=== PATIENT | female | born 1985 | race Two or more races ===

== ENCOUNTER → 2024-11-04 | Outpatient (CLI) | payer OTHER, SELFPAY ==
--- NOTE | 2024-11-04 08:15 | XR_ITS ---
Examination: Screening digital mammography, bilateral Computer aided detection 3-D breast Tomosynthesis, bilateral Date and time of exam: 11/04/2024, 8:14 AM Comparisons: 08/14/2023 Indications: Screening Technique: Nonmagnified MLO, CC views of the breasts to been obtained, reconstructed from 3-D Tomosynthesis images. R2 computer aided detection program utilized for evaluation of suspicious masses and/or abnormal calcifications. 3-D Tomosynthesis images obtained. Technologist: Findings: The breasts are heterogeneously dense, which may obscure small masses. No evidence of abnormal masses or suspicious calcifications. Impression: BI-RADS category 1: Negative findings (within normal) Recommend 1 year follow-up mammogram
== END | disposition home or self-care (01) ==
LOC: CDIM 08:03
PROVIDERS: Referring Provider Nurse Practitioner Family; Visit Provider Nurse Practitioner Family
DX: Z12.31 Encounter for screening mammogram for malignant neoplasm of breast (principal); R92.313 Mammographic fatty tissue density, bilateral breasts
CPT/HCPCS: 77063; 77067

== ENCOUNTER 2025-07-02 23:15 | Emergency (ER) | payer OTHER, SELFPAY ==
[2025-07-02 23:16] VITALS: BMI 32.1
[2025-07-02 23:59] VITALS: BP 127/87; PULSE 81; RESP 18; TEMP 36.7; O2SAT 98
--- NOTE | 2025-07-03 00:10 | XR_ITS ---
Examination: CT abdomen and pelvis without contrast. Coronal 3-D reconstructions. Sagittal 2-D reconstructions. Date and time of exam: July 03, 2025, 0148 hours INDICATIONS: Upper abdominal pain beginning 3 days ago COMPARISON: November 02, 2023 CTDI: vol (mGy): 9.61 DLP: (mGycm): 570 Technique: Axial images of the abdomen have been obtained, 3 mm slice thickness Intravenous contrast material has not been administered. Low dose protocols were performed. One or more of the following dose reduction techniques were used; automated exposure control, adjustment of the mA and/or KV according to patient size, use of iterative reconstruction technique. Findings: No focal liver or splenic lesions No gallstones No pancreatic or adrenal mass Mild renal scar formation No renal or ureteral calculi, no hydronephrosis Aorta normal size Normal appendix No bowel obstruction Atrophic uterus Urinary bladder wall thickening Grade 1 spondylolisthesis L5 on S1 with advanced degenerative disc disease L5-S1 IMPRESSION: Urinary bladder wall thickening, consider cystitis
[2025-07-03 00:35] LABS: Collection Type, Urine Clean Catch
[2025-07-03 00:36] LABS: Basophils # (Auto) 0.0 Thou/mm3 (0.0-0.2); Basophils % (Auto) 1 % (0-2.5); Eosinophils # (Auto) 0.2 Thou/mm3 (0.0-0.5); Eosinophils % (Auto) 4 % (0-10); Hematocrit 39.8 % (36.0-46.0); Hemoglobin 14.1 g/dL (12.0-16.0); Immature Granulocytes Auto 0.02 Thou/mm3 (0.00-0.00); Lymphocytes # (Auto) 2.1 Thou/mm3 (1.0-4.8); Lymphocytes % (Auto) 36 % (10-50); Mean Corpuscular HGB Conc 35.4 g/dl (31.0-37.0); Mean Corpuscular Hemoglobin 31.8 pg (25.0-35.0); Mean Corpuscular Volume 90 fL (80-100); Monocytes # (Auto) 0.4 Thou/mm3 (0.0-0.8); Monocytes % (Auto) 7 % (0-12); Neutrophils # (Auto) 3.1 Thou/mm3 (1.8-7.7); Neutrophils % (Auto) 53 % (37-80); Nucleated Red Blood Cell # 0.00 Thou/mm3 (0.00-0.00); Nucleated Red Blood Cell % 0 /100 WBC (0); Platelet Count 255 Thou/mm3 (140-440); RDW Standard Deviation 39.8 fL (36.4-46.3); Red Blood Count 4.43 Miln/mm3 (4.00-5.20); White Blood Count 5.8 Thou/mm3 (3.6-11.0)
[2025-07-03 00:44] LABS: Bilirubin,Urine Negative (Negative); Blood,Urine Negative (Negative); Clarity,Urine Clear (Clear/Hazy); Color,Urine Lt-Yellow (Lt Yel-Yel); Glucose, Urine 4+ (Negative); Ketones,Urine 3+ (Negative); Leukocyte Esterase,Urine Negative (Negative); Nitrite,Urine Negative (Negative); PH,Urine 6.5 (5.0-7.0); Protein,Urine Negative (Neg - Trace); RBC,Urine 2 /hpf (0-3); Specific Gravity,Urine 1.040 (1.001-1.035); Squamous Epithelial Cell,Urine 1 /hpf (0-5); Urobilinogen,Urine Negative mg/dL (0.0-1.0); WBC,Urine < 1 /hpf (0-5)
[2025-07-03 00:45] LABS: HCG Qualitative,Urine Negative
[2025-07-03 01:09] LABS: Alanine Aminotransferase 8 U/L (10-49); Albumin, Serum 4.6 gm/dL (3.5-5.0); Albumin/Globulin Ratio 2.2 (1.2-2.2); Alkaline Phosphatase 131 U/L (46-116); Anion Gap 12 (7-16); Aspartate Amino Transferase 11 U/L (0-34); BUN/Creatinine Ratio 8 Ratio (12-20); Bilirubin,Total 0.2 mg/dL (0.3-1.2); Blood Urea Nitrogen < 5 mg/dL (9-23); Calcium 10.2 mg/dL (8.3-10.6); Calcium (Corrected) 10.2 mg/dL (8.5-10.1); Carbon Dioxide 26.4 mMol/L (20.0-31.0); Chloride 96 mMol/L (98-107); Creatinine (Component) 0.6 mg/dL (0.6-1.3); Estimated Creatinine Clearance 114.8 mL/min (>60); Globulin 2.1 gm/dL (2.3-3.5); Glucose 340 mg/dL (74-106); Lipase 34 U/L (12-53); Osmolality,Calculated 278 (275-295); Potassium 3.6 mMol/L (3.4-5.1); Sodium 134 mMol/L (136-145); Total Protein 6.7 gm/dL (5.7-8.2); eGFR > 60 See Note
--- NOTE | 2025-07-03 02:14 | PD.EDRME ---
Rapid Medical Screening Exam RME Arrival date/time: 07/02/25 23:15 This is a case of 41-year-old female with history of hyperlipidemia and diabetes came into the emergency room due to generalized abdominal pain for 2 days associated with nausea vomiting diarrhea worsening of the symptoms this patient decided to start consulted in the emergency room Chief Complaint: Abdominal Pain Time Seen by Provider: 07/03/25 00:10 Vital signs: Vital Signs Temperature 98.1 F 07/02/25 23:59 Pulse Rate 81 07/02/25 23:59 Respiratory Rate 18 07/02/25 23:59 Blood Pressure 127/87 H 07/02/25 23:59 Pulse Oximetry (%) 98 07/02/25 23:59 Oxygen Delivery Method Room Air 07/02/25 23:59 Exam: Abdominal exam mild tenderness on the both upper abdomen no guarding no rebound no rigidity Clinical Impression: Abdominal pain
--- NOTE | 2025-07-03 02:36 | PD.EDABDPN ---
ED Abdominal Pain RME/HPI General Chief Complaint: Abdominal Pain Stated complaint: UPPER ABD PAIN Time seen by provider: 07/03/25 00:10 Arrival date/time: 07/02/25 23:15 RME / HPI RME / HPI narrative: 07/02/25 23:15 This is a case of 41-year-old female with history of hyperlipidemia and diabetes came into the emergency room due to generalized abdominal pain for 2 days associated with nausea vomiting diarrhea worsening of the symptoms this patient decided to start consulted in the emergency room DR. GOLDBERG MAIN ED EVALUATION: Patient with known DM presenting with burning sensation to the LUQ x approximately 4 days duration increasing with PO. No nausea, vomiting, or diarrhea. Denies fever and chills. Although baseline urinary frequency, denies dysuria. PMH: Hypercholesterolemia, Asthma, Obesity, Diabetes Mellitus Type 2, Anemia PSH: , Hysterectomy, Tubal Ligation Allergies: NKDA Social: Non-smoker, Non-drinker Exam: Abdominal exam mild tenderness on the both upper abdomen no guarding no rebound no rigidity Impression: Abdominal pain Related Data Home Medications ?Medication ?Instructions ?Recorded ?Confirmed metformin 1,000 mg tablet 1,000 mg PO BID 05/03/19 01/25/22 atorvastatin 20 mg tablet 20 mg PO QDAY 01/25/22 01/25/22 cholecalciferol (vitamin D3) 125 5,000 unit PO QDAY 01/25/22 01/25/22 mcg (5,000 unit) tablet (Vitamin D3) glipizide 5 mg tablet 5 mg PO QDAY 01/25/22 01/25/22 insulin glargine 100 unit/mL (3 50 unit subcut HS 01/25/22 01/25/22 mL) subcutaneous pen (Basaglar KwikPen U-100 Insulin) Previous Rx's ?Medication ?Instructions ?Recorded tramadol 50 mg tablet 50 mg PO Q4H PRN pain #14 tabs 01/25/22 hydrocodone 5 mg-acetaminophen 325 1 tab PO TID PRN pain #10 tabs 07/20/22 mg tablet hydrocodone 5 mg-acetaminophen 325 1 tab PO TID PRN pain #10 tabs 07/21/22 mg tablet omeprazole magnesium 10 mg oral 10 mg PO BID #30 ea 07/03/25 suspension,delayed release (Prilosec) Allergies Allergy/AdvReac Type Severity Reaction Status Date / Time No Known Allergies Allergy Verified 07/02/25 23:21 Review of Systems Review of Systems Systems Reviewed: All systems reviewed, normal except as documented Past Medical History Past Medical History CARDIAC: Positive Hypercholesterolemia RESPIRATORY: Positive Asthma GASTROINTESTINAL: Positive Obesity REPRODUCTIVE: Positive Previous Pregnancies ENDOCRINE: Positive Diabetes Mellitus Type 2 HEMATOLOGIC: Positive Anemia OTHER HISTORY: Positive Blood Transfusions Family History FAMILY HISTORY: Positive Family Cardiac Disorders (father(htn)) and Family Surgery Surgical History SURGICAL: Positive Hysterectomy, Tubal Ligation (2018) and Section (x3) ED Exam Narrative Physical exam: GEN. APPEARANCE: The patient is alert awake oriented X-3 under no distress, lying down comfortably, does not look ill/toxic. Patient has good eye contact. Patient is cooperative. VITALS: All vitals were reviewed and the pulse ox is 98%, which is normal according to my interpretation HEENT: Normocephalic, atraumatic and nontender. Pupils are equal and reactive. Oral mucosa is moist. NECK: Supple, nontender, no meningismus, no JVD. There is no thyromegaly and no lymphadenopathy. CHEST: Nontender on palpation no deformity and no crepitus. CARDIOVASCULAR: Heart regular rhythm, no murmur or gallop rub or extra beats. LUNGS: Clear to auscultation bilaterally with symmetrical chest rise. No laboring tachypnea or wheezing. No intercostal subcostal retraction. No rales and no rhonchi. ABDOMEN: Soft, flat, LUQ/epigastric region mildly tender, no peritoneal findings, no guarding or rebound tenderness. There are no abnormal masses palpated. No pulsatile masses or bruits. Active and normal bowel sounds. EXTREMITIES: Normal inspection and palpation. No edema. No cyanosis. Patient is able to move all 4 extremities well SKIN: Warm and dry, no rashes noted. MUSCULOSKELETAL: No lumbar or midline bony tenderness. There is no CVA tenderness. No paraspinal muscle spasm or tenderness. NEURO: Cranial nerves II through XII grossly intact. There are no focal neurologic deficits noted. GCS is 15 PSYCHIATRIC: Patient is in normal mood and affect, cooperative. LYMPHATICS: No major lymphadenopathy noted. Course Quality Measures none Orders Category Date Time Status CT abdomen pelvis wo con Stat Exams 07/03/25 00:10 Completed Beta Hydroxybutyrate Stat Lab 07/03/25 03:04 Completed CBC Stat Lab 07/03/25 00:26 Completed Comprehensive Metabolic Panel Stat Lab 07/03/25 00:26 Completed HCG Qualitative,Urine Stat Lab 07/03/25 00:19 Completed Lipase Stat Lab 07/03/25 00:26 Completed Urinalysis Stat Lab 07/03/25 00:19 Completed Venous Blood Gas Stat Lab 07/03/25 02:13 Completed Insulin Regular Med 07/03/25 02:45 Discontinued 5 unit SC X1 ONE Insulin Regular Med 07/03/25 02:13 Discontinued 6 unit IV X1 ONE Lidocaine 2% Viscous [Xylocaine 2% Viscous] Med 07/03/25 02:42 Discontinued 15 ml PO X1 ONE Sodium Chloride 0.9% 1000 ml [Ns] 1,000 ml Med 07/03/25 02:13 Discontinued IV 999 mls/hr Sodium Chloride 0.9% 1000 ml [Ns] 1,000 ml Med 07/03/25 02:42 Discontinued IV 999 mls/hr mg Hyd/Al Hyd/Tiffani Susp [Maalox Susp] Med 07/03/25 02:42 Discontinued 30 ml PO X1 ONE Vital Signs Vital signs: Vital Signs Temperature 98.1 F 07/02/25 23:59 Pulse Rate 81 07/02/25 23:59 Respiratory Rate 18 07/02/25 23:59 Blood Pressure 127/87 H 07/02/25 23:59 Pulse Oximetry (%) 98 07/02/25 23:59 Oxygen Delivery Method Room Air 07/02/25 23:59 Abdominal Pain MDM MDM Narrative MDM Narrative:: Scribe Attestation: Amber Rebollar am scribing for and in the presence of Dr. Santoyo. Provider Notation: Although this document has been carefully reviewed, there may still be some phonetic and other typographical errors. These errors are purely grammatical due to imperfections in the software program and should not be construed in any way to compromise the substance of the patient's medical care during this visit. Patient with known DM presenting with burning sensation to the LUQ x approximately 4 days duration increasing with PO. No nausea, vomiting, or diarrhea. Denies fever and chills. Although baseline urinary frequency, denies dysuria. Please see PE findings. Laboratory markers including CBC and serum chemistries demonstrate norm wbc no anemia or thrombocytopenia. No left shift or bandemia. Serum chemistries were essentially unremarkable. Glucose elevated to 340 without signs of ketosis. Marginal elevation in LFT's. Patient treated with GI cocktail and regular insulin, patient observed for several hours and remained otherwise stable, non-toxic in appearance and although US suggestive of cystitis, UA completely unremarkable for signs of infection. Patient notably dehydrated, will encourage force fluid hydration, placed on PPI, and instructed to F/U with PMD for consideration for referral to GI specialist. Final diagnoses include gastritis and hyperglycemia without ketosis. Patient data External records reviewed:: [facility] previous records (Reviewed prior ED records from 07/31/22. Patient was seen for Pain, dental.) Clinical information provided by:: patient Social determinants that could affect healthcare access:: none Patient has the following chronic illnesses:: Hypercholesterolemia, Asthma, Obesity, Diabetes Mellitus Type 2, Anemia How is presenting disease/condition affected by chronic disease/condition?: exacerbated by Evaluation data The following diagnostics were reviewed and interpreted by me:: lab results and radiology exam(s) Lab and/or radiology exams considered but not ordered:: None Interpretation Summary: RADIOLOGY Abdomen/Pelvis CT: Findings: There is a 3mm calcified granuloma at the right lung base. There is bibasilar subsegmental atelectasis. The liver, gallbladder, pancreas, spleen, kidneys and adrenals are unremarkable on this noncontrast study. No obstructing ureteric calculus or hydronephrosis. No evidence of bowel obstruction. The appendix is within normal limits. There is no adenopathy. The urinary bladder is incompletely distended at the time of the examination and appears moderately thick walled. The uterus is small.There is no free fluid or free air. There is umbilical thickening. There is L5 bilateral spondylolysis with mild grade 1 anterolisthesis of the L5 on S1. There is advanced degenerative disc disease at L5-S1. Impression: No evidence of bowel obstruction, free air or fluid collection. Findings suspicious forcystitis. Recommendurinalysis correlation. Medications / Prescriptions Medications or Prescriptions considered but not ordered:: None Medication administrations:: Medication Administration History Discontinued Medications Al Hydrox/Mg Hydrox/Simethicone (Mg Hyd/Al Hyd/Tiffani (Maalox Reg) Susp 30 Ml Udc) 30 ml PO X1 ONE Stop: 07/03/25 02:43 Last Admin: 07/03/25 03:56 Dose: 30 ml Documented By: KURT Sodium Chloride (Ns) 1,000 mls @ 999 mls/hr IV .Q1H1M ONE Stop: 07/03/25 03:13 Last Admin: 07/03/25 04:20 Dose: Not Given Documented By: HILDA Non-Admin Reason: Discontinued Sodium Chloride (Ns) 1,000 mls @ 999 mls/hr IV .Q1H1M ONE Stop: 07/03/25 03:42 Last Admin: 07/03/25 04:20 Dose: Not Given Documented By: HILDA Non-Admin Reason: Discontinued Insulin Human Regular (Insulin Hum Regular 1 Unit/0.01 Ml (Per Unit)) 6 unit IV X1 ONE Stop: 07/03/25 02:14 Last Admin: 07/03/25 04:20 Dose: Not Given Documented By: HILDA Non-Admin Reason: Discontinued Insulin Human Regular (Insulin Hum Regular 1 Unit/0.01 Ml (Per Unit)) 5 unit SC X1 ONE Stop: 07/03/25 02:46 Last Admin: 07/03/25 04:00 Dose: 5 unit Documented By: KURT Co-signed By: HILDA Lidocaine HCl (Lidocaine Viscous 2% 15 Ml Udc) 15 ml PO X1 ONE Stop: 07/03/25 02:43 Last Admin: 07/03/25 03:59 Dose: 15 ml Documented By: KURT See above if any Consultations Consultation(s) initiated? (list below): No Diagnosis Differential diagnosis abdominal pain: abdominal pain, calculus of kidney, pancreatitis and other (GERD) Most likely diagnosis given after review of the tests above:: gastritis and hyperglycemia without ketosis Admission Indicated Admission indicated?: not indicated Explain why admission is indicated or not indicated:: Patient does not meet admission criteria Admission Request Was there a request for admission?: No Disposition Plan Disposition Plan: Discharge Discharge Attestation Discharge Attestation: The patient and all family members were given an opportunity to ask questions and understood the discharge instructions. Discharge instructions specifically effects, indications for sooner follow up or return to the emergency department, and the expected course of current diagnosis. Patient condition: Stable Discharge Plan Plan Patient Disposition: HOME (Self Care) Discharge Disposition comment: Stable Prescriptions/Referrals Prescriptions/Med Rec: New Prilosec 10 mg susp,delayed release for recon 10 mg PO BID Qty: 30 1RF No Action metformin 1,000 mg Tablet 1,000 mg PO BID atorvastatin 20 mg Tablet 20 mg PO QDAY glipizide 5 mg Tablet 5 mg PO QDAY Basaglar KwikPen U-100 Insulin 100 unit/mL (3 mL) Insulin Pen 50 unit SUBCUT HS cholecalciferol (vitamin D3) [Vitamin D3] 125 mcg (5,000 unit) Tablet 5,000 unit PO QDAY tramadol 50 mg tablet 50 mg PO Q4H PRN (Reason: pain) Qty: 14 0RF hydrocodone-acetaminophen 5-325 mg tablet 1 tab PO TID MDD 3 PRN (Reason: pain) Qty: 10 0RF hydrocodone-acetaminophen 5-325 mg tablet 1 tab PO TID MDD 3 PRN (Reason: pain) Qty: 10 0RF Referrals: Krystyna Cantor CNM [Primary Care Provider] - In 1 week Problem List Clinical Impression: Gastritis, Hyperglycemia without ketosis Impression comment: Gastritis/hyperglycemia without ketosis Patient/Caregiver Discharge Instructions Discharge Activity: activity as tolerated Diet Instructions: Avoid hot spicy foods, caffeinated beverages, Education Materials: ED Diabetes with High Blood Sugar, ED PEPTIC ULCER vs GASTRITIS Additional Instructions: Medication as directed. Avoid caffeinated beverages and hot and spicy foods. Follow-up with primary care doctor for consideration of referral to GI specialist for upper endoscopy. Print Language: Barbadian Stand Alone Forms: Marie Award Info., Patient Portal Info Letter
--- NOTE | 2025-07-03 02:39 | PRELIM_ITS ---
CT scan of the abdomen and pelvis without intravenous contrast (axial sections with sagittal and coronal reformats) July 03, 2025 0148 hours Clinical History: abd pain Findings: There is a 3mm calcified granuloma at the right lung base. There is bibasilar subsegmental atelectasis. The liver, gallbladder, pancreas, spleen, kidneys and adrenals are unremarkable on this noncontrast study. No obstructing ureteric calculus or hydronephrosis. No evidence of bowel obstruction. The appendix is within normal limits. There is no adenopathy. The urinary bladder is incompletely distended at the time of the examination and appears moderately thick walled. The uterus is small.There is no free fluid or free air. There is umbilical thickening. There is L5 bilateral spondylolysis with mild grade 1 anterolisthesis of the L5 on S1. There is advanced degenerative disc disease at L5-S1. Impression: No evidence of bowel obstruction, free air or fluid collection. Findings suspicious forcystitis. Recommendurinalysis correlation. Report Electronically Signed By: Sarwat Oseguera 07/03/2025 2:39:26 AM [EST]
[2025-07-03 03:41] LABS: Base Excess, Venous 1 (-3-3); O2 Saturation, Venous 78 % (96-97); PCO2, Venous 42 mmHg (36-56); PO2, Venous 42 mmHg (15-58); pH, Venous 7.40 (7.33-7.66)
[2025-07-03 03:53] LABS: Beta Hydroxybutyrate 3.0 mmol/L (<0.6)
[2025-07-03] MEDS: MG HYD/AL HYD/SIME (Maalox Reg) SUSP 30 ML UDC PO (03:56)
[2025-07-03] MEDS: LIDOCAINE VISCOUS 2% 15 ML UDC PO (03:59)
[2025-07-03] MEDS: INSULIN HUM REGULAR 1 UNIT/0.01 ML (PER UNIT) 5 UNIT SC (04:00)
== END 2025-07-03 04:20 | disposition home or self-care (01) ==
PROVIDERS: Nurse Practitioner Family; Emergency Provider Emergency Medicine; PCP Midwife
DX: K29.70 Gastritis, unspecified, without bleeding (principal); E11.65 Type 2 diabetes mellitus with hyperglycemia; Z79.4 Long term (current) use of insulin
CPT/HCPCS: 36415; 74176; 80053; 81001; 81025; 82010; 82803; 83690; 85025; 99283; J1815; J3490; A9270